=== PATIENT | male | born 1980 | race Caucasian/White ===

== ENCOUNTER 2021-05-04 12:09 | Emergency (ER) | payer OTHER, SELFPAY ==
--- NOTE | 2021-05-04 12:16 | ECG_ITS ---
Test Reason : DIZZINESS Blood Pressure : / mmHG Vent. Rate : 060 BPM Atrial Rate : 060 BPM P-R Int : 154 ms QRS Dur : 094 ms QT Int : 404 ms P-R-T Axes : 064 108 058 degrees QTc Int : 404 ms Normal sinus rhythm Possible Left atrial enlargement Rightward axis Borderline ECG No previous ECGs available Referred By: Generic ED Physician Electronically Signed By:MELVI DURAN MD
[2021-05-04 12:22] VITALS: BP 145/70; BP 154/80; PULSE 69; PULSE 77; RESP 16; TEMP 36.7; O2SAT 100; O2SAT 98; BMI 22.7
--- NOTE | 2021-05-04 12:22 | ED_ITS ---
HPI - Weakness General Chief complaint: Dizziness Stated complaint: dizzy Time Seen by Provider: 05/04/21 12:22 Source: patient Mode of arrival: ambulatory Limitations: no limitations History of Present Illness HPI Narrative: Patient with a few weeks of weakness and fatigue. Patient had recent prednisone taper for fluid in his ears. no exertional chest pain. No recent medically problems. The weakness is a a global fatigue that starts in the morning and is worse as the day goes on. Patient just had a sleep study that was normal. Patient called his doctor for worsening symptoms and was sent to the ED. No SOB or swelling. no rashes or tick bites. Patient was feeling this way prior to being on prednisone. MD Complaint: generalized weakness Onset (ago): week(s) Duration: constant Location: generalized Severity: moderate Exacerbating factors: exertion Related Data Previous Rx's Medication Instructions Recorded doxycycline monohydrate 100 mg PO BID #42 cap 05/04/21 Allergies Allergy/AdvReac Type Severity Reaction Status Date / Time No Known Allergies Allergy Verified 05/04/21 12:22 Review of Systems Constitutional: Constitutional: Reports no additional constitutional complaints Eyes: Eyes: Reports no additional eye complaints ENT: Denies dizziness Cardiovascular: Cardiovascular: Reports no additional cardiovascular complaints Respiratory: Respiratory: Reports as per HPI Gastrointestinal: Gastrointestinal: Reports no additional gastrointestinal complaints Musculoskeletal: Musculoskeletal: Reports no additional musculoskeletal complaints Integumentary/Breasts: Skin/Breast: Denies rash Neurologic: Reports system reviewed and no additional complaints, except as documented, Denies dizziness and Denies Sensory deficit (Neuro) Psychiatric: Psychiatric: Denies anxiety [facility] Past Medical History Medical History No known health problems Social History Social History Alcohol intake: never Patient Tobacco Use Status: Never used Tobacco Use of substances other than those prescribed or required for medical reasons: No Advance Directives: No Advance Directives Information Provided: Yes Physical Exam Vital Signs: Vital Signs: Last Vital Signs Temp 98.1 F 05/04/21 12:22 Pulse 67 05/04/21 13:52 Resp 16 05/04/21 13:52 BP 138/71 05/04/21 13:52 Pulse Ox 98 05/04/21 13:52 Body Mass Index 22.7 Const: General: healthy appearing Nutritional Appearance: average body habitus Orientation/consciousness: oriented to person and patient oriented x3 Limitations: no limitations HENMT: Head: Yes normal to inspection Ears: external ears normal General nose exam: Normal external nose present Mouth: Normal oral and palatal mucosa present and oropharynx normal Throat: Yes posterior oropharynx normal Eyes: General: appearance normal, both eyes and all related structures Neck: Other: supple Neck: Yes normal visual inspection Chest: Chest palpation & inspection: normal inspection of the chest Resp: Auscultation: clear to auscultation bilaterally Cardio: Jugular venous distension: no JVD Rate: regular rate Rhythm: regular rhythm Heart sounds: S1 normal heart sound present and S2 normal heart sound present GI: Inspection: Yes normal to inspection Palpation (GI): Soft to palpation, nontender and No hepatosplenomegaly present Auscultation: normal bowel sounds : General: Yes no CVA tenderness Back/Spine/Pelvis: Back: no CVA tenderness Skin: General skin exam: no rashes or lesions noted Neuro: General: oriented to person and patient oriented x3 Cranial nerves: Yes CN's II-XII intact bilaterally Motor exam (neuro): 5/5 motor strength present throughout Sensory Exam: No Sensory deficit (Neuro) Extrem: General: Yes normal to inspection Psych: Appearance: grossly normal Course Reevaluation(s) Reevaluation #1: patient with normal ekg, not orthostatic, normal troponin. However, patient with low WBC. low platelets consistent with ehrlichioisis. Will have the patient start doxycycline and follow up with his doctor. Time: 13:35 MDM - Weakness Lab Data Result diagrams: 05/04/21 12:47 05/04/21 12:47 Labs: Lab Results 05/04/21 05/04/21 05/04/21 Range/Units 12:47 12:47 12:47 WBC 3.9 L (4.8-10.8) X10*3/uL RBC 4.60 (4.60-5.80) X10*6/uL Hgb 13.3 L (14.0-18.0) g/dl Hct 40.3 L (42-52) % MCV 87.6 (80-98) fL MCH 28.9 (27.0-33.0) pg MCHC 33.0 (31.0-36.0) g/dl RDW 12.7 (11.0-16.0) % Plt Count 110 L (160-400) X10*3/uL MPV 10.9 (9.4-12.4) fL Immature Gran % (Auto) 0.3 (0.0-0.4) % Neut % (Auto) 66.8 (45-73) % Lymph % (Auto) 20.5 (20-40) % [place] % (Auto) 10.6 (2-11) % Eos % (Auto) 1.3 (0-4) % Baso % (Auto) 0.5 (0-2) % Lymph # (Auto) 0.8 L (1.2-4.9) X10*3/uL [place] # (Auto) 0.4 (0.1-1.2) X10*3/uL Eos # (Auto) 0.1 (0.0-0.4) X10*3/uL Baso # (Auto) 0.0 (0.0-0.2) X10*3/uL Abs Immat Gran (auto) 0.01 (0.00-0.03) X10*3/uL Absolute Neuts (auto) 2.6 (2.0-8.3) X10*3/uL Absolute Nucleated RBC 0.000 (0.0-0.012) X10*3/uL Nucleated RBC % (auto) 0.0 (0.0-0.2) /100WBC Sodium 140 (135-145) mmol/L Potassium 4.1 (3.3-5.1) mmol/L Chloride 106 (96-108) mmol/L Carbon Dioxide 30 H (22-29) mmol/L Anion Gap 8 L (12-20) BUN 13 (9-16) mg/dL Creatinine 0.90 (0.5-1.4) mg/dL Estim Creat Clear Calc 107.6 Estimated GFR > 60 Random Glucose 97 (60-115) mg/dL Calcium 9.2 (8.4-10.2) mg/dL Total Creatine Kinase 132 (38-174) U/L Troponin I High Sens < 3.5 (<3.5-35.0) ng/L ECG Data Attestation: I personally reviewed and interpreted this ECG as follows: Interpretation: sinus rate of [address] or twave changes Discharge Plan Discharge Clinical Impression: Ehrlichiosis, Thrombocytopenia Leukocytopenia, unspecified Qualifiers: Leukopenia type: other Qualified Code(s): D72.818 - Other decreased white blood cell count Patient Disposition: Home, Self-Care Instructions: Lyme Disease (ED), Thrombocytopenia (ED) Prescriptions: New doxycycline monohydrate 100 mg capsule 100 mg PO BID Qty: 42 RF: 0 Referrals: Lucas Muñoz MD [Primary Care Provider] - 5 days Interventions: ED Discharge Assessment Last Done: 05/04/21 13:55 Discharge Date/Time: 05/04/21 14:00
[2021-05-04 12:53] LABS: Eosinophils Absolute Auto 0.1 X10*3/uL (0.0-0.4); Eosinophils Percent Auto 1.3 % (0-4); Hemoglobin 13.3 g/dl (14.0-18.0); Imm Gran Abs Auto 0.01 X10*3/uL (0.00-0.03); Imm Gran Pct Auto 0.3 % (0.0-0.4); Red Cell Distribution Width 12.7 % (11.0-16.0)
[2021-05-04 12:55] LABS: Basophils Percent Auto 0.5 % (0-2); Hematocrit 40.3 % (42-52); Lymphocytes Absolute Auto 0.8 X10*3/uL (1.2-4.9); Lymphocytes Percent Auto 20.5 % (20-40); Mean Corpuscular Hemoglobin 28.9 pg (27.0-33.0); Mean Corpuscular Volume 87.6 fL (80-98); Mean Platelet Volume 10.9 fL (9.4-12.4); Monocytes Absolute Auto 0.4 X10*3/uL (0.1-1.2); Monocytes Percent Auto 10.6 % (2-11); Neutrophils Absolute Auto 2.6 X10*3/uL (2.0-8.3); Neutrophils Percent Auto 66.8 % (45-73); Platelet Count 110 X10*3/uL (160-400); White Blood Count 3.9 X10*3/uL (4.8-10.8)
[2021-05-04 12:56] LABS: MANUAL DIFF FLAG NO
[2021-05-04 13:11] VITALS: BP 132/69; BP 133/73; PULSE 65; PULSE 69
[2021-05-04 13:12] VITALS: BP 136/81; PULSE 80
[2021-05-04 13:13] VITALS: BP 136/81; PULSE 71; RESP 14; O2SAT 99
[2021-05-04 13:15] LABS: Anion Gap 8 (12-20); Blood Urea Nitrogen 13 mg/dL (9-16); Calcium 9.2 mg/dL (8.4-10.2); Carbon Dioxide 30 mmol/L (22-29); Chloride 106 mmol/L (96-108); Creatinine Clr Calc Pharmacy 107.6; Estimated Glomerular Filt Rate > 60; Glucose Random 97 mg/dL (60-115); Potassium 4.1 mmol/L (3.3-5.1); Sodium 140 mmol/L (135-145)
[2021-05-04 13:20] LABS: Troponin-I High Sensitivity < 3.5 ng/L (<3.5-35.0)
[2021-05-04 13:52] VITALS: BP 138/71; PULSE 67; RESP 16; O2SAT 98
[2021-05-04 15:23] LABS: Alanine Aminotransferase 31 U/L (0-40); Albumin Level 4.2 g/dL (3.5-5.0); Alkaline Phosphatase 76 U/L (39-117); Aspartate Amino Transferase 22 U/L (5-37); Bilirubin Direct 0.3 mg/dL (0.0-0.5); Bilirubin Total 0.7 mg/dL (0.0-1.0); Total Protein 6.3 g/dL (6.5-8.0)
[2021-05-05 21:17] LABS: A. Phagocytphilium DNA,RT-PCR NOT DETECTED (NOT DETECTED); Babesia Microti DNA, RT-PCR NOT DETECTED (NOT DETECTED); Borrelia Miyamotoi,DNA RT-PCR NOT DETECTED (NOT DETECTED); E.Chaffeensis DNA RT-PCR NOT DETECTED (NOT DETECTED); Lyme(Borrelia ssp)DNA RT-PCR NOT DETECTED (NOT DETECTED); Source-Tick borne disease EDTA
== END 2021-05-04 14:00 | disposition home or self-care (01) ==
PROVIDERS: Emergency Provider Emergency Medicine; PCP Internal Medicine
DX: A77.40 Ehrlichiosis, unspecified (principal); D69.6 Thrombocytopenia, unspecified; D72.818 Other decreased white blood cell count
CPT/HCPCS: 36415; 80048; 80076; 82550; 84484; 85025; 87798; 87801; 93005; 99284

== ENCOUNTER 2021-07-13 09:04 | Emergency (ER) | payer OTHER, SELFPAY ==
[2021-07-13 09:18] VITALS: BP 165/63; PULSE 76; RESP 18; TEMP 36.6; O2SAT 100; BMI 21.5
--- NOTE | 2021-07-13 09:20 | ECG_ITS ---
Test Reason : PALPITATIONS Blood Pressure : / mmHG Vent. Rate : 071 BPM Atrial Rate : 071 BPM P-R Int : 150 ms QRS Dur : 102 ms QT Int : 406 ms P-R-T Axes : 073 118 059 degrees QTc Int : 441 ms Normal sinus rhythm Possible Left atrial enlargement Incomplete right bundle branch block Left posterior fascicular block Abnormal ECG When compared with ECG of 04-MAY-2021 12:21, No significant change was found Referred By: Generic ED Physician Electronically Signed By:YANIRA PFEIFFER
--- NOTE | 2021-07-13 09:42 | ED_ITS ---
HPI - Arrhythmia/Palpitations General Chief Complaint: Arrhythmia/Palpitations Stated Complaint: RAPID HEART BEAT Time Seen by Provider: 07/13/21 09:41 Source: patient Mode of arrival: ambulatory Limitations: no limitations History of Present Illness complaint: rapid heart beat and heart racing Onset (ago): hour(s) (7am) Duration: now resolved Severity: moderate Context: occurred during rest Associated symptoms: shortness of breath Related Data Previous Rx's Medication Instructions Recorded doxycycline monohydrate 100 mg 100 mg PO BID #42 cap 05/04/21 capsule Allergies Allergy/AdvReac Type Severity Reaction Status Date / Time No Known Allergies Allergy Verified 05/04/21 12:22 Review of Systems Review of Systems: Constitutional : No Fever, No Chills, pos fatigue ENT/Mouth : No sore throat, No Rhinorrhea, No Swallowing Difficulty Eyes: No Eye Pain, No Swelling, No Redness Cardiovascular : No Chest Pain, positive SOB, No Orthopnea, no Edema, pos palpitations Respiratory : No Cough, No Sputum, No Wheezing, positive dyspnea Gastrointestinal : No Nausea, No Vomiting, No Diarrhea, No abdominal Pain, No Hematochezia, No Melena Genitourinary : No Dysuria, No Urinary Frequency, No Hematuria Musculoskeletal : No joint pain, No Myalgias Skin : No Skin Lesions, No rash Neuro : No Weakness, No Numbness, No Dizziness, No Headache Psych : No Anxiety/Panic, No Depression Heme/Lymph: No Bruising, No Lymphadenopathy Endocrine : No Polyuria, No Polydipsia All other systems reviewed and are negative PMFSH Past Medical History Attestation statement: The following information was validated with the patient. Medical History No known health problems Social History Social History Alcohol intake: never Patient Tobacco Use Status: Never used Tobacco Use of substances other than those prescribed or required for medical reasons: No Advance Directives: No Advance Directives Information Provided: No Physical Exam Vital Signs: Vital Signs: Last Vital Signs Temp 97.8 F 07/13/21 10:15 Pulse 68 07/13/21 10:15 Resp 17 07/13/21 10:15 BP 150/81 H 07/13/21 10:15 Pulse Ox 100 07/13/21 10:15 Body Mass Index 21.5 Appearance: Alert. Oriented X3. No acute distress. Eyes: Pupils equal, round and reactive to light. ENT: Pharynx normal. Neck: Normal inspection. Neck supple. CVS: Normal heart rate and rhythm. Pulses normal. Respiratory: No respiratory distress. Breath sounds normal. Abdomen: Soft and non-tender. Skin: Skin warm and dry. Normal skin color. Normal skin turgor. Extremities: No lower extremity edema. No calf ttp Neuro: Oriented X 3. No motor deficit. No sensory deficit. Course Course Course Narrative: no acute findings, TSH normal has appointment for plts and WBCs with sweatband drummer this week MDM - Arrhythmia/Palpitations MDM Narrative Medical decision making narrative: 41 yo male with hx of anxiety has had months of fatigue states he was worked up by his PCP normal thyroid this summer and ?possible testosterone he reports palpitations this AM with some dyspnea - no stimulant abuse, PERC negative unchanged EKG doubt ACS - at this time will r epeat labs and TSH dispo per results and findings. Lab Data Result diagrams: 07/13/21 10:22 07/13/21 10:22 Labs: Lab Results 07/13/21 07/13/21 07/13/21 Range/Units 10:22 10:22 10:22 WBC 4.4 L (4.8-10.8) X10*3/uL RBC 5.00 (4.60-5.80) X10*6/uL Hgb 14.5 (14.0-18.0) g/dl Hct 43.0 (42-52) % MCV 86.0 (80-98) fL MCH 29.0 (27.0-33.0) pg MCHC 33.7 (31.0-36.0) g/dl RDW 12.8 (11.0-16.0) % Plt Count 116 L (160-400) X10*3/uL MPV 10.8 (9.4-12.4) fL Immature Gran % (Auto) 0.2 (0.0-0.4) % Neut % (Auto) 67.8 (45-73) % Lymph % (Auto) 18.9 L (20-40) % [place] % (Auto) 11.2 H (2-11) % Eos % (Auto) 1.4 (0-4) % Baso % (Auto) 0.5 (0-2) % Lymph # (Auto) 0.8 L (1.2-4.9) X10*3/uL [place] # (Auto) 0.5 (0.1-1.2) X10*3/uL Eos # (Auto) 0.1 (0.0-0.4) X10*3/uL Baso # (Auto) 0.0 (0.0-0.2) X10*3/uL Abs Immat Gran (auto) 0.01 (0.00-0.03) X10*3/uL Absolute Neuts (auto) 3.0 (2.0-8.3) X10*3/uL Absolute Nucleated RBC 0.000 (0.0-0.012) X10*3/uL Nucleated RBC % (auto) 0.0 (0.0-0.2) /100WBC Smear Tech's Comments Not Reportable Sodium 139 (135-145) mmol/L Potassium 4.5 (3.3-5.1) mmol/L Chloride 106 (96-108) mmol/L Carbon Dioxide 28 (22-29) mmol/L Anion Gap 10 L (12-20) BUN 12 (9-16) mg/dL Creatinine 0.85 (0.5-1.4) mg/dL Estim Creat Clear Calc 107.8 Estimated GFR > 60 Random Glucose 101 (60-115) mg/dL Calcium 9.5 (8.4-10.2) mg/dL Magnesium 2.1 (1.6-2.6) mg/dL Total Bilirubin 0.9 (0.0-1.0) mg/dL Direct Bilirubin 0.4 (0.0-0.5) mg/dL AST 27 (5-37) U/L ALT 39 (0-40) U/L Alkaline Phosphatase 71 (39-117) U/L Total Protein 6.7 (6.5-8.0) g/dL Albumin 4.4 (3.5-5.0) g/dL TSH 1.42 (0.32-4.0) uIU/mL COVID-19 (DIONNA) Negative (Negative) COVID-19 Clin Com See Note ECG Data Attestation: I personally reviewed and interpreted this ECG as follows: ECG interpretation date: 07/13/21 ECG interpretation time: 09:42 Interpretation: Rate: 71 Rhythm: NSR [place]: normal Normal P waves. Normal JUANY. incomplete RBBB ST T wave : normal no JAY qTC: normal prior studies: no acute ischemia, no change from prior The study has been interpreted contemporaneously by me. . Discharge Plan Discharge Clinical Impression: Palpitations Patient Disposition: Home, Self-Care Instructions: Heart Palpitations (ED) Additional Instructions: return to ED for any worsening symptoms or concerns please see the sweatband drummer as scheduled Test Result Flag Reference Site WBC 4.4 L 4.8-10.8 X10*3/uL RBC 5.00 4.60-5.80 X10*6/uL HGB 14.5 14.0-18.0 g/dl HCT 43.0 42-52 % MCV 86.0 80-98 fL MCH 29.0 27.0-33.0 pg MCHC 33.7 31.0-36.0 g/dl RDW 12.8 11.0-16.0 % PLT 116 L 160-400 X10*3/uL MPV 10.8 9.4-12.4 fL Neut Pct Auto 67.8 45-73 % ImGran Pct Auto 0.2 0.0-0.4 % Lymp Pct Auto 18.9 L 20-40 % [place] Pct Auto 11.2 H 2-11 % Eos Pct Auto 1.4 0-4 % Baso Pct Auto 0.5 0-2 % NRBC Pct Auto 0.0 0.0-0.2 /100WBC ANC Neut Abs # 3.0 2.0-8.3 X10*3/uL [place] Abs Auto 0.01 0.00-0.03 X10*3/uL Lymph Abs Auto 0.8 L 1.2-4.9 X10*3/uL [place] Abs Auto 0.5 0.1-1.2 X10*3/uL Eos Abs Auto 0.1 0.0-0.4 X10*3/uL Baso Abs Auto 0.0 0.0-0.2 X10*3/uL NRBC Abs Auto 0.000 0.0-0.012 X10*3/uL Prescriptions: No Action doxycycline monohydrate 100 mg capsule 100 mg PO BID Qty: 42 RF: 0 Stand Alone Forms: Work/School Release
[2021-07-13 10:15] VITALS: BP 150/81; PULSE 68; RESP 17; TEMP 36.6; O2SAT 100
[2021-07-13 10:37] LABS: Eosinophils Absolute Auto 0.1 X10*3/uL (0.0-0.4); Hemoglobin 14.5 g/dl (14.0-18.0); Imm Gran Abs Auto 0.01 X10*3/uL (0.00-0.03); Imm Gran Pct Auto 0.2 % (0.0-0.4); MANUAL DIFF FLAG SCAN; PLT CLUMP 1; SCAN SMEAR FLAG 1
[2021-07-13 10:39] LABS: Basophils Percent Auto 0.5 % (0-2); Eosinophils Percent Auto 1.4 % (0-4); Lymphocytes Absolute Auto 0.8 X10*3/uL (1.2-4.9); Lymphocytes Percent Auto 18.9 % (20-40); Mean Corpuscular HGB Conc 33.7 g/dl (31.0-36.0); Mean Platelet Volume 10.8 fL (9.4-12.4); Monocytes Absolute Auto 0.5 X10*3/uL (0.1-1.2); Monocytes Percent Auto 11.2 % (2-11); Neutrophils Percent Auto 67.8 % (45-73); Platelet Count 116 X10*3/uL (160-400); Red Cell Distribution Width 12.8 % (11.0-16.0); White Blood Count 4.4 X10*3/uL (4.8-10.8)
[2021-07-13 10:46] LABS: COVID-19 Test Negative (Negative)
[2021-07-13 10:47] LABS: Alanine Aminotransferase 39 U/L (0-40); Albumin Level 4.4 g/dL (3.5-5.0); Alkaline Phosphatase 71 U/L (39-117); Anion Gap 10 (12-20); Aspartate Amino Transferase 27 U/L (5-37); Bilirubin Direct 0.4 mg/dL (0.0-0.5); Bilirubin Total 0.9 mg/dL (0.0-1.0); Blood Urea Nitrogen 12 mg/dL (9-16); Calcium 9.5 mg/dL (8.4-10.2); Carbon Dioxide 28 mmol/L (22-29); Chloride 106 mmol/L (96-108); Creatinine Clr Calc Pharmacy 107.8; Estimated Glomerular Filt Rate > 60; Glucose Random 101 mg/dL (60-115); Magnesium 2.1 mg/dL (1.6-2.6); Potassium 4.5 mmol/L (3.3-5.1); Sodium 139 mmol/L (135-145); Total Protein 6.7 g/dL (6.5-8.0)
[2021-07-13 11:07] LABS: TSH reflex Free T4 1.42 uIU/mL (0.32-4.0)
== END 2021-07-13 11:23 | disposition home or self-care (01) ==
PROVIDERS: Emergency Provider Emergency Medicine; PCP Internal Medicine
DX: R00.2 Palpitations (principal); R06.02 Shortness of breath; Z20.822 Contact with and (suspected) exposure to COVID-19; Z79.899 Other long term (current) drug therapy
CPT/HCPCS: 36415; 80048; 80076; 83735; 84443; 85025; 87635; 93005; 99283; 99284